=== PATIENT | female | born 1945 | race Caucasian/White ===

== ENCOUNTER → 2016-08-08 | Outpatient (CLI) | payer MEDICARE, OTHER ==
[~2016-08-08] MED LIST: ALBU25PO2; ATOR10TA9; LEVO100T; LISI1POW; REGADENOSON 0.4 MG/5 ML SYRINGE ONE
== END | disposition home or self-care (01) ==
LOC: CFH 07:15
PROVIDERS: ATTEND Internal Medicine Cardiovascular Disease
DX: R94.31 Abnormal electrocardiogram [ECG] [EKG] (principal); R06.02 Shortness of breath; I10 Essential (primary) hypertension; E78.5 Hyperlipidemia, unspecified
CPT/HCPCS: 78452; 93017; 93306; A9502; J2785

== ENCOUNTER → 2016-09-12 | Outpatient (CLI) | payer MEDICARE, OTHER ==
[~2016-09-12] MED LIST changes: -REGADENOSON 0.4 MG/5 ML SYRINGE ONE
== END | disposition home or self-care (01) ==
LOC: CARD 12:28
PROVIDERS: ATTEND Internal Medicine Critical Care Medicine
DX: J44.9 Chronic obstructive pulmonary disease, unspecified (principal)
CPT/HCPCS: 94060; 94620; 94726; 94729

== ENCOUNTER 2018-01-20 09:52 | Emergency (ER) | payer MEDICARE, OTHER ==
[~2018-01-20] VITALS: Ht 162.6 cm; Wt 76.5 kg
[2018-01-20] MEDS ORDERED: GEMF600T4 PO (10:57)
[2018-01-20] MEDS ORDERED: AMLO-150 PO (10:57)
[2018-01-20] MEDS ORDERED: METO200T47 PO (10:57)
[2018-01-20] MEDS ORDERED: ASPI-496 PO (10:57)
[2018-01-20] MEDS ORDERED: METF850T10 PO (10:57)
[2018-01-20 11:24] LABS: CULTURE INDICATED? YES; MICROSCOPIC INDICATED
[2018-01-20 11:55] LABS: ALBUMIN 3.9 g/dL (3.4-5.0); ANION GAP 8 mmol/L (5-15); CALCIUM 9.5 mg/dL (8.5-10.1); CHLORIDE 103 mmol/L (98-107)
[2018-01-20 11:58] LABS: ALANINE AMINOTRANSFERASE 18 U/L (12-78); ALKALINE PHOSPHATASE 87 U/L (45-117); BILIRUBIN,TOTAL 1.3 mg/dL (0.2-1.0); CREATININE 1.16 mg/dL (0.55-1.02); TOTAL PROTEIN 7.5 g/dL (6.4-8.2)
[2018-01-20 12:26] LABS: LYMPHOCYTES % (AUTO) 17 % (22-44); MEAN CORPUSCULAR HEMOGLOBIN 29.8 pg (27.0-34.8); MEAN CORPUSCULAR HGB CONC 33.2 g/dL (32.4-35.8); MEAN CORPUSCULAR VOLUME 89.9 fL (80-100); MEAN PLATELET VOLUME 7.8 fL (7.4-10.4); MONOCYTES % (AUTO) 5 % (2-9); NEUTROPHILS % (AUTO) 77 % (42-75); PLATELET COUNT 263 x10^3/uL (130-400); RED BLOOD COUNT 5.39 x10^6/uL (3.82-5.3); RED CELL DISTRIBUTION WIDTH 14.6 % (9.6-15.2)
[2018-01-20 12:27] LABS: BASOPHILS # (AUTO) 0.02 x10^3/uL (0-0.1); BASOPHILS % (AUTO) 0 % (0-1); EOSINOPHILS # (AUTO) 0.05 x10^3/uL (0-0.4); EOSINOPHILS % (AUTO) 1 % (1-7); LYMPHOCYTES # (AUTO) 1.36 x10^3/uL (1-3.4); MD NO; MONOCYTES # (AUTO) 0.41 x10^3/uL (0.2-0.8); NEUTROPHILS # (AUTO) 6.12 x10^3/uL (1.8-6.8)
[2018-01-20 13:04] VITALS: BP 137/60
== END 2018-01-20 13:34 | disposition home or self-care (01) ==
LOC: ED 12:40
DX: R10.31 Right lower quadrant pain (principal); R05 Cough; E03.9 Hypothyroidism, unspecified; E78.00 Pure hypercholesterolemia, unspecified; I10 Essential (primary) hypertension; E11.9 Type 2 diabetes mellitus without complications; E78.5 Hyperlipidemia, unspecified; Z90.49 Acquired absence of other specified parts of digestive tract; Z90.710 Acquired absence of both cervix and uterus
CPT/HCPCS: 36415; 74022; 80053; 81001; 83690; 85025; 87086; 99284

== ENCOUNTER 2018-02-16 09:19 | Emergency (ER) | payer MEDICARE, OTHER ==
[~2018-02-16] VITALS: Ht 162.6 cm; Wt 75.3 kg
[~2018-02-16 09:19] MED LIST changes: +AMLO-150 PO; +ASPI-496 PO; +GEMF600T4 PO; +METF850T10 PO; +METO200T47 PO
--- NOTE | 2018-02-16 09:54 | NUR ---
Assumed care of patient. C/O lower ABD pain and intermittent diarrhea and constipation. C/O nausea, denies vomiting. Patient reports two BMs since in ER. Placed on NIBP and pulse ox. Will continue to monitor.
[2018-02-16] MEDS ORDERED: SODIUM CHLORIDE FLUSH 10ML SYR IVF ONE (10:00)
[2018-02-16 10:17] LABS: BASOPHILS # (AUTO) 0.03 x10^3/uL (0-0.1); BASOPHILS % (AUTO) 1 % (0-1); EOSINOPHILS # (AUTO) 0.09 x10^3/uL (0-0.4); EOSINOPHILS % (AUTO) 1 % (1-7); LYMPHOCYTES # (AUTO) 1.29 x10^3/uL (1-3.4); LYMPHOCYTES % (AUTO) 18 % (22-44); MD NO; MEAN CORPUSCULAR HEMOGLOBIN 30.1 pg (27.0-34.8); MEAN CORPUSCULAR HGB CONC 33.7 g/dL (32.4-35.8); MEAN CORPUSCULAR VOLUME 89.5 fL (80-100); MEAN PLATELET VOLUME 7.8 fL (7.4-10.4); MONOCYTES # (AUTO) 0.39 x10^3/uL (0.2-0.8); MONOCYTES % (AUTO) 5 % (2-9); NEUTROPHILS # (AUTO) 5.48 x10^3/uL (1.8-6.8); NEUTROPHILS % (AUTO) 75 % (42-75); PLATELET COUNT 207 x10^3/uL (130-400); RED BLOOD COUNT 5.14 x10^6/uL (3.82-5.3); RED CELL DISTRIBUTION WIDTH 13.9 % (9.6-15.2)
[2018-02-16 10:28] LABS: ALANINE AMINOTRANSFERASE 18 U/L (12-78); ALBUMIN 3.7 g/dL (3.4-5.0); ANION GAP 7 mmol/L (5-15); CALCIUM 8.9 mg/dL (8.5-10.1); CHLORIDE 104 mmol/L (98-107); CREATININE 1.21 mg/dL (0.55-1.02)
[2018-02-16 10:31] LABS: ALKALINE PHOSPHATASE 86 U/L (45-117); BILIRUBIN,TOTAL 1.3 mg/dL (0.2-1.0); TOTAL PROTEIN 7.1 g/dL (6.4-8.2)
[2018-02-16] MEDS ORDERED: OMNIPAQUE 350 MG/ML, 100ML BOTTLE ONE (10:58)
--- NOTE | 2018-02-16 11:17 | NUR ---
DR. HOGAN TO ROOM TO UPDATED POC. PT WALKED TO RESTROOM BY THIS RN FOR UA SAMPLE.
[2018-02-16] MEDS ORDERED: ACETAMINOPHEN 325 MG TABLET ONE (11:27)
[2018-02-16] MEDS ORDERED: ACETAMINOPHEN 325 MG TABLET PO ONE (11:30)
--- NOTE | 2018-02-16 11:30 | NUR ---
Patient medicated and UA sent.
[2018-02-16 11:46] LABS: MICROSCOPIC NOT IND
[2018-02-16 11:54] LABS: CULTURE INDICATED? NO
[2018-02-16 12:30] VITALS: BP 143/83
--- NOTE | 2018-02-16 13:11 | NUR ---
Patient/Caregiver given discharge instructions and they have confirmed that they understand the instructions. Patient ambulatory with steady gait.
== END 2018-02-16 13:12 | disposition home or self-care (01) ==
LOC: ED 09:46
DX: R10.84 Generalized abdominal pain (principal); R51 Headache; E78.5 Hyperlipidemia, unspecified; E11.9 Type 2 diabetes mellitus without complications; I10 Essential (primary) hypertension; E78.00 Pure hypercholesterolemia, unspecified; E03.9 Hypothyroidism, unspecified; Z90.89 Acquired absence of other organs; Z90.49 Acquired absence of other specified parts of digestive tract; Z90.710 Acquired absence of both cervix and uterus
CPT/HCPCS: 36415; 74177; 80053; 81003; 83605; 83690; 85025; 99284; Q9967

== ENCOUNTER 2018-05-04 22:00 | Inpatient (IN) | payer MEDICARE, OTHER ==
[~2018-05-04] VITALS: Ht 160 cm; Wt 75.3 kg
[~2018-05-04 22:00] MED LIST changes: -GEMF600T4 PO; +GEMF600T8 PO
[2018-05-04] MEDS ORDERED: ENAL20TA PO (22:15)
[2018-05-04] MEDS ORDERED: SODIUM CHLORIDE FLUSH 10ML SYR IVF ONE (22:30)
[2018-05-04] MEDS ORDERED: DIGOXIN 0.25 MG/ML, 2ML IVPush ONE (22:30)
[2018-05-04] MEDS ORDERED: SODIUM CHLORIDE 0.9%, 500ML IVBOLUS ONE (22:30)
[2018-05-04] MEDS ORDERED: DIGOXIN 0.25 MG/ML, 2ML ONE (22:35)
[2018-05-04 22:41] LABS: BASOPHILS # (AUTO) 0.05 x10^3/uL (0-0.1); BASOPHILS % (AUTO) 1 % (0-1); EOSINOPHILS # (AUTO) 0.17 x10^3/uL (0-0.4); EOSINOPHILS % (AUTO) 2 % (1-7); LYMPHOCYTES # (AUTO) 1.38 x10^3/uL (1-3.4); LYMPHOCYTES % (AUTO) 12 % (22-44); MD NO; MEAN CORPUSCULAR HEMOGLOBIN 29.6 pg (27.0-34.8); MEAN CORPUSCULAR HGB CONC 33.4 g/dL (32.4-35.8); MEAN CORPUSCULAR VOLUME 88.7 fL (80-100); MEAN PLATELET VOLUME 8.1 fL (7.4-10.4); MONOCYTES # (AUTO) 0.77 x10^3/uL (0.2-0.8); MONOCYTES % (AUTO) 7 % (2-9); NEUTROPHILS # (AUTO) 8.74 x10^3/uL (1.8-6.8); NEUTROPHILS % (AUTO) 79 % (42-75); PLATELET COUNT 246 x10^3/uL (130-400); RED CELL DISTRIBUTION WIDTH 13.5 % (9.6-15.2)
[2018-05-04 22:54] LABS: ALANINE AMINOTRANSFERASE 14 U/L (12-78); ALBUMIN 3.5 g/dL (3.4-5.0); ANION GAP 5 mmol/L (5-15); CALCIUM 9.1 mg/dL (8.5-10.1); CHLORIDE 107 mmol/L (98-107); CREATININE 1.26 mg/dL (0.55-1.02); INTERNATIONAL NORMALIZED RATIO 0.97 (0.93-1.1); PROTHROMBIN TIME 10.2 Seconds (9.6-11.5)
[2018-05-04 22:59] LABS: ALKALINE PHOSPHATASE 96 U/L (45-117); BILIRUBIN,TOTAL 0.7 mg/dL (0.2-1.0); TOTAL PROTEIN 6.9 g/dL (6.4-8.2); TROPONIN I < 0.015 ng/mL (0.000-0.045)
--- NOTE | 2018-05-04 23:02 | NUR ---
PT SITTING UP IN [facility] WITH AT BEDSIDE. VOIDED PER BEDPAN. DIGOXIN IVP GIVEN.
--- NOTE | 2018-05-04 23:56 | NUR ---
RESTING WITH AT BEDSIDE. WHILE IN ROOM CONVERTED FROM AFIB 120-130 TO SINUS RHYTHM 60-70S.
[2018-05-05] MEDS ORDERED: SODIUM CHLORIDE 0.9% 1,000 ML IV SCH (00:34)
--- NOTE | 2018-05-05 00:40 | NUR ---
REPEAT EKG DONE. HOSPITALIST AT BEDSIDE.
[2018-05-05 00:59] VITALS: BP 166/81
[2018-05-05] MEDS ORDERED: BISACODYL 10 MG SUPP PR PRN (01:00)
[2018-05-05] MEDS ORDERED: ACETAMINOPHEN 325 MG TABLET PO PRN (01:00)
[2018-05-05] MEDS ORDERED: ONDANSETRON ODT 4 MG PO PRN (01:00)
[2018-05-05] MEDS ORDERED: DIPHENHYDRAMINE 25 MG CAPSULE PO PRN (01:00)
[2018-05-05] MEDS: ENOXAPARIN 60 MG/0.6 ML SQ SCH ×2 (01:46→16:28)
[2018-05-05] MEDS ORDERED: ALBUTEROL SULFATE 2.5 MG/3 ML NPPB PRN (02:30)
[2018-05-05 08:11] VITALS: BP 133/74
[2018-05-05] MEDS: ENALAPRIL 20MG TABLET PO SCH ×2 (08:12→20:04)
[2018-05-05] MEDS: GEMFIBROZIL 600 MG TABLET PO SCH ×2 (08:12→20:04)
[2018-05-05] MEDS: ASPIRIN 81 MG TABLET CHEW PO/NG SCH (08:12)
[2018-05-05] MEDS ORDERED: LEVO150T PO (08:16)
[2018-05-05] MEDS ORDERED: LEVOTHYROXINE 100 MCG TABLET ONE (10:43)
[2018-05-05] MEDS: LEVOTHYROXINE 150 MCG TABLET PO SCH (10:46)
[2018-05-05 11:37] LABS: TROPONIN I < 0.015 ng/mL (0.000-0.045)
[2018-05-05 14:15] VITALS: BP 152/77
[2018-05-05] MEDS ORDERED: BENZONATATE 100 MG CAPSULE PO PRN (16:30)
[2018-05-05] MEDS ORDERED: GUAIFENESIN/DM 200-20MG, 10ML UDC PO PRN (16:30)
[2018-05-05] MEDS ORDERED: MELATONIN 3 MG TABLET PO PRN (16:30)
[2018-05-05 20:00] VITALS: BP 137/75
[2018-05-06 02:00] VITALS: BP 155/77
[2018-05-06] MEDS: ENOXAPARIN 60 MG/0.6 ML SQ SCH (03:37)
[2018-05-06 05:22] LABS: BASOPHILS # (AUTO) 0.03 x10^3/uL (0-0.1); BASOPHILS % (AUTO) 0 % (0-1); EOSINOPHILS # (AUTO) 0.25 x10^3/uL (0-0.4); EOSINOPHILS % (AUTO) 4 % (1-7); LYMPHOCYTES # (AUTO) 1.33 x10^3/uL (1-3.4); LYMPHOCYTES % (AUTO) 21 % (22-44); MD NO; MEAN CORPUSCULAR HEMOGLOBIN 29.7 pg (27.0-34.8); MEAN CORPUSCULAR HGB CONC 33.3 g/dL (32.4-35.8); MEAN CORPUSCULAR VOLUME 89.3 fL (80-100); MEAN PLATELET VOLUME 9.1 fL (7.4-10.4); MONOCYTES # (AUTO) 0.41 x10^3/uL (0.2-0.8); MONOCYTES % (AUTO) 7 % (2-9); NEUTROPHILS # (AUTO) 4.24 x10^3/uL (1.8-6.8); NEUTROPHILS % (AUTO) 68 % (42-75); PLATELET COUNT 191 x10^3/uL (130-400); RED BLOOD COUNT 4.82 x10^6/uL (3.82-5.3); RED CELL DISTRIBUTION WIDTH 13.2 % (9.6-15.2)
[2018-05-06 05:32] LABS: ANION GAP 4 mmol/L (5-15); CALCIUM 9.1 mg/dL (8.5-10.1); CHLORIDE 109 mmol/L (98-107)
[2018-05-06] MEDS: LEVOTHYROXINE 150 MCG TABLET PO SCH (05:32)
[2018-05-06 05:38] LABS: CHOL/HDL RATIO 3.4; CHOLESTEROL, TOTAL 128 mg/dL (140-239); HDL CHOL % 30 % (28-40); HDL CHOLESTEROL (DIRECT) 38 mg/dL (40-60); LDL CHOLESTEROL,CALCULATED 67 mg/dL (54-169); LDL/HDL RATIO 1.8 (0.5-3.0); TRIGLYCERIDES 113 mg/dL (50-200); VLDL CHOLESTEROL 23 mg/dL (0-25)
[2018-05-06 07:56] VITALS: BP 136/79
[2018-05-06] MEDS ORDERED: REGADENOSON 0.4 MG/5 ML SYRINGE ONE (08:29)
[2018-05-06] MEDS: ASPIRIN 81 MG TABLET CHEW PO/NG SCH (11:14)
[2018-05-06] MEDS: GEMFIBROZIL 600 MG TABLET PO SCH (11:14)
[2018-05-06] MEDS: ENALAPRIL 20MG TABLET PO SCH (11:15)
[2018-05-06] MEDS ORDERED: APIX5TAB PO (12:50)
[2018-05-06] MEDS ORDERED: BENZ-17 PO (12:50)
[2018-05-06 13:33] VITALS: BP 158/87
[2018-05-06] MEDS ORDERED: APIXABAN 5 MG TABLET PO SCH (21:00)
== END 2018-05-06 14:30 | disposition home or self-care (01) | DRG 309 ==
LOC: ED 23:50 → EDIP 23:58 → ED 23:59 → 5SO 05-05 01:04 → DCLOUNGE 05-06 14:22
PROVIDERS: ADMIT Internal Medicine; ATTEND Internal Medicine
DX: I48.91 Unspecified atrial fibrillation (principal); J96.10 Chronic respiratory failure, unspecified whether with hypoxia or hypercapnia; E03.9 Hypothyroidism, unspecified; E11.9 Type 2 diabetes mellitus without complications; E78.00 Pure hypercholesterolemia, unspecified; E78.5 Hyperlipidemia, unspecified; I11.9 Hypertensive heart disease without heart failure; F40.240 Claustrophobia; M79.602 Pain in left arm; J44.9 Chronic obstructive pulmonary disease, unspecified; F17.210 Nicotine dependence, cigarettes, uncomplicated; Z99.81 Dependence on supplemental oxygen; Z90.710 Acquired absence of both cervix and uterus; Z90.49 Acquired absence of other specified parts of digestive tract; Z80.0 Family history of malignant neoplasm of digestive organs; Z82.5 Family history of asthma and other chronic lower respiratory diseases
CPT/HCPCS: 0399T; 36415; 70450; 78452; 80048; 80053; 80061; 82962; 83880; 84439; 84443; 84484; 85025; 85610; 85730; 93005; 93017; 93306; 93880; 96360; G0378; J1650; J2785; 92523-GN; A9502; C9898; J1160; J7030; J7040

== ENCOUNTER 2019-03-12 19:20 | Emergency (ER) | payer MEDICARE, OTHER ==
[~2019-03-12] VITALS: Ht 160 cm; Wt 76.6 kg
[~2019-03-12 19:20] MED LIST changes: +APIX5TAB PO; -ATOR10TA9; +ATOR10TA9 PO; +BENZ-17 PO; +CHOL5000 PO; +DIGO125T PO; +ENAL20TA PO; +LEVO150T PO; +MELA5TAB14 PO; +SERT50TA28 PO
[2019-03-12] MEDS ORDERED: DILTIAZEM 5 MG/ML, 5ML ONE (19:46)
[2019-03-12] MEDS ORDERED: ASPIRIN 81 MG TABLET CHEW ONE (19:47)
--- NOTE | 2019-03-12 19:51 | NUR ---
ASSISTED IN PT CARE. PT PLACED ON MONITOR. RAPID AFIB NOTED 130S-150S. OTHERWISE VSS. IV ACCESS OBTAINED AND LABS DRAWN. REPORT TO HILARY SHAH.
[2019-03-12] MEDS ORDERED: SODIUM CHLORIDE FLUSH 10ML SYR IVF ONE (20:00)
[2019-03-12] MEDS ORDERED: ASPIRIN 81 MG TABLET CHEW PO ONE (20:00)
[2019-03-12] MEDS ORDERED: DILTIAZEM 5 MG/ML, 5ML IV ONE (20:00)
[2019-03-12 20:03] LABS: BASOPHILS # (AUTO) 0.12 x10^3/uL (0-0.1); BASOPHILS % (AUTO) 1 % (0-1); EOSINOPHILS # (AUTO) 0.12 x10^3/uL (0-0.4); EOSINOPHILS % (AUTO) 1 % (1-7); LYMPHOCYTES # (AUTO) 1.19 x10^3/uL (1-3.4); LYMPHOCYTES % (AUTO) 10 % (22-44); MD NO; MEAN CORPUSCULAR HEMOGLOBIN 28.7 pg (27.0-34.8); MEAN CORPUSCULAR HGB CONC 32.7 g/dL (32.4-35.8); MEAN CORPUSCULAR VOLUME 87.5 fL (80-100); MEAN PLATELET VOLUME 8.5 fL (7.4-10.4); MONOCYTES # (AUTO) 0.63 x10^3/uL (0.2-0.8); MONOCYTES % (AUTO) 6 % (2-9); NEUTROPHILS # (AUTO) 9.45 x10^3/uL (1.8-6.8); NEUTROPHILS % (AUTO) 82 % (42-75); PLATELET COUNT 319 x10^3/uL (130-400); RED BLOOD COUNT 5.12 x10^6/uL (3.82-5.3); RED CELL DISTRIBUTION WIDTH 15.2 % (9.6-15.2)
--- NOTE | 2019-03-12 20:07 | NUR ---
ASSUMED CARE OF PT. DILTAZEM GIVEN HR REDUCED TO 105. PT RESITING IN HOSPITAL BED. ACCOMPANIED BY . WAS CARDIOVERTRED IN APRIL
[2019-03-12 20:16] LABS: ALBUMIN 3.5 g/dL (3.4-5.0); ANION GAP 9 mmol/L (5-15); CALCIUM 9.6 mg/dL (8.5-10.1); CHLORIDE 102 mmol/L (98-107); CREATININE 1.12 mg/dL (0.55-1.02)
[2019-03-12 20:19] LABS: TROPONIN I < 0.015 ng/mL (0.000-0.045)
[2019-03-12] MEDS ORDERED: DILTIAZEM 5 MG/ML, 5ML IVPush ONE (21:00)
[2019-03-12] MEDS ORDERED: PROPOFOL 10 MG/ML, 20ML ONE (21:02)
--- NOTE | 2019-03-12 21:25 | NUR ---
ROOM SET UP FOR CARDIOVERSION AWAITING MD. BEDSIDE
[2019-03-12] MEDS ORDERED: METOPROLOL 1 MG/ML, 5ML ONE (21:43)
--- NOTE | 2019-03-12 22:19 | NUR ---
REPORT GIVEN TO ALYSSA MIRAMONTES
[2019-03-13 00:05] VITALS: BP 114/63
== END 2019-03-13 00:09 | disposition home or self-care (01) ==
LOC: ED 22:16
DX: I48.0 Paroxysmal atrial fibrillation (principal); I10 Essential (primary) hypertension; E11.9 Type 2 diabetes mellitus without complications; E78.00 Pure hypercholesterolemia, unspecified; E78.5 Hyperlipidemia, unspecified; E03.9 Hypothyroidism, unspecified; Z90.49 Acquired absence of other specified parts of digestive tract; Z90.710 Acquired absence of both cervix and uterus
CPT/HCPCS: 36415; 71045; 80048; 82040; 84484; 85025; 92960; 93005; 96374; 96376; 99152; 99285

== ENCOUNTER 2019-09-08 08:36 | Outpatient (CLI) | payer MEDICARE ==
[~2019-09-08 08:36] MED LIST changes: +AMIO200T42 PO; -DIGO125T PO; +DIGO125T85 PO; +LEVO100T5 PO
== END 2019-09-08 23:59 | disposition home or self-care (01) ==
LOC: CFH 08:36
PROVIDERS: ATTEND Internal Medicine Cardiovascular Disease
DX: Z02.9 Encounter for administrative examinations, unspecified (principal)

== ENCOUNTER → 2020-09-07 | Outpatient (CLI) | payer MEDICARE ==
[~2020-09-07] MED LIST changes: -ENAL20TA PO; +ENAL20TA9 PO; +GEMF-31 PO; -GEMF600T8 PO
== END | disposition home or self-care (01) ==
LOC: CFH 09:28
PROVIDERS: ATTEND Internal Medicine Cardiovascular Disease
DX: E03.8 Other specified hypothyroidism (principal); E78.2 Mixed hyperlipidemia; I10 Essential (primary) hypertension; I25.10 Atherosclerotic heart disease of native coronary artery without angina pectoris; I48.91 Unspecified atrial fibrillation; F17.210 Nicotine dependence, cigarettes, uncomplicated
CPT/HCPCS: 71046